=== PATIENT | female | born 1965 | race Caucasian/White ===

== ENCOUNTER 2020-05-09 13:32 | Outpatient (CLI) | payer MEDICARE, OTHER, MEDICAID, SELFPAY ==
--- NOTE | 2020-05-09 13:30 | MM_ITS ---
WS: [id number] SCREENING DIGITAL MAMMOGRAM WITH CAD HISTORY: screening COMPARISON: None available. Bilateral CC and MLO views submitted. Computer aided detection analyzed. Breast composition: There are scattered areas of fibroglandular density. No suspicious masses, microc alcifications or architectural distortion. MM/[place] [id number] IMPRESSION: BI-RADS: 1-Negative FOLLOW UP: 1 Year Follow-up
== END 2020-05-09 13:33 | disposition home or self-care (01) ==
PROVIDERS: PCP Family Medicine; Visit Provider Family Medicine
DX: Z12.31 Encounter for screening mammogram for malignant neoplasm of breast (principal)
CPT/HCPCS: 77067

== ENCOUNTER 2020-05-28 13:56 | Outpatient (CLI) | payer MEDICARE, OTHER, MEDICAID, SELFPAY ==
--- NOTE | 2020-05-28 14:40 | MR_ITS ---
WS: [id number] MRI LUMBAR SPINE NONCONTRAST HISTORY: SPINAL stenosis, lumbar REGION W/O NEUROGENIC CLAUDICATION COMPARISON: 07/17/2018 TECHNIQUE: Sagittal and axial multisequence imaging is submitted. Normal lumbar alignment with no compression fractures or marrow edema. Disc spaces and vertebral body heights are well-preserved. Conus terminates normally at L1. L1-L2: Normal. L2-L3: Normal. L3-L4: Tiny central disc protrusion similar to the prior study. Mild bilateral facet joint arthritis with no stenosis. L4-L5: Mild broad-based disc bulging. No focal stenosis. Disc is slightly asymmetric to the RIGHT. Mi ld bilateral facet joint arthritis. L5-S1: No stenosis. Mild annular bulging. Paravertebral soft tissues are normal. MR/MR lumbar spine wo con* [id number] IMPRESSION: 1. No significant central or foraminal stenosis. 2. Broad-based disc bulging at L4-5 without stenosis.
--- NOTE | 2020-05-28 14:42 | MR_ITS ---
WS: [id number] MRI THORACIC SPINE noncontrast HISTORY: SPINAL stenosis, lumbar REGION W/O NEUROGENIC CLAUDICATION COMPARISON: None available. TECHNIQUE: Multiplanar sequences are performed in sagittal and axial planes. Very slight RIGHT curvature of the thoracic spine with mild increase in thoracic kyphosis. Increased T1 and T2 signal in the T3 vertebral body is probably a hemangioma. There is additional inc reased signal on the T2 sequence within T6 and T7. T1 signal is not significantly increased but there is increased T2 signal in the T6 posterior LEFT body extending towards the pedicle. Signal abnormal ity measures 1.6 x 2.0 cm. There may be slight expansion of the bony cortex. No prior studies for com parison. T1-2: Normal. T2-3: Normal. T3-4: Normal. T4-5: Normal. T5-6: Normal. T6-7: Normal. T7-8: Moderate-sized central and LEFT paracentral disc protrusion. Slight contact on the ventral the mary sac and flattening. T8-9: RIGHT nerve root sleeve diverticulum. T9-10: Nerve root sleeve diverticulum on the RIGHT. T10-11: Negative. T11-12: Normal. MR/MR thoracic spin wo con* [id number] IMPRESSION: 1. Moderate-sized central and LEFT paracentral disc protrusion at T7-8 with mi ld cord contact. 2. Signal abnormalities within the T3, T6 and T7. Favor benign hemangiomas. No t a typical hemangioma at T6. Suggest bone scan imaging to evaluate for abnorma l uptake in T6.
--- NOTE | 2020-05-28 14:42 | XR_ITS ---
WS: [id number] LATERAL LUMBAR SPINE: 3 view. Lateral radiographs are performed in upright neutral, flexion and extension to the patient's toleranc e. HISTORY: SPINAL stenosis, lumbar REGION W/O NEUROGENIC CLAUDICATION COMPARISON: 12/08/2017 Less than 2 mm anterolisthesis of L4 is similar to the prior study. With flexion and extension no ins tability. Disc spaces and vertebral body heights are normal. Facet joint arthritis and sclerosis at L 4-5 and L5-S1. A few calcifications in aorta. XR/XR lumbar spine f/e only [id number] IMPRESSION: 1. Minimal anterolisthesis of L4 with no instability. 2. Facet joint arthritis at L4-5 and L5-S1 is moderate.
== END 2020-05-28 13:57 | disposition home or self-care (01) ==
LOC: RADWPI 14:02
PROVIDERS: Family Provider Family Medicine; PCP Family Medicine; Visit Provider Anesthesiology Pain Medicine
DX: M48.061 Spinal stenosis, lumbar region without neurogenic claudication (principal); M51.24 Other intervertebral disc displacement, thoracic region; M46.86 Other specified inflammatory spondylopathies, lumbar region; M46.87 Other specified inflammatory spondylopathies, lumbosacral region; M51.26 Other intervertebral disc displacement, lumbar region
CPT/HCPCS: 72120; 72146; 72148

== ENCOUNTER → 2020-08-11 12:20 | Outpatient (BNVA) | payer MEDICARE, OTHER, MEDICAID, SELFPAY | PROVIDERS: Family Provider Family Medicine; PCP Family Medicine; Visit Provider Family Medicine | DX: R73.9 Hyperglycemia, unspecified (principal); E03.9 Hypothyroidism, unspecified; I10 Essential (primary) hypertension | CPT/HCPCS: 80053; 83036; 84443; 85025 ==

== ENCOUNTER → 2020-10-09 12:18 | Outpatient (BNVA) | payer MEDICARE, OTHER, MEDICAID, SELFPAY | PROVIDERS: Family Provider Family Medicine; PCP Family Medicine; Visit Provider Family Medicine | DX: E11.65 Type 2 diabetes mellitus with hyperglycemia (principal) | CPT/HCPCS: 36416; 82962 ==

== ENCOUNTER → 2020-12-09 10:46 | Outpatient (BNVA) | payer MEDICARE, OTHER, MEDICAID, SELFPAY | PROVIDERS: Family Provider Family Medicine; PCP Family Medicine; Visit Provider Family Medicine | DX: Z01.818 Encounter for other preprocedural examination; E11.65 Type 2 diabetes mellitus with hyperglycemia; M48.061 Spinal stenosis, lumbar region without neurogenic claudication; M54.16 Radiculopathy, lumbar region; J44.9 Chronic obstructive pulmonary disease, unspecified; Z79.899 Other long term (current) drug therapy | CPT/HCPCS: 80048; 83036 ==

== ENCOUNTER 2021-02-13 15:10 | Outpatient (CLI) | payer MEDICARE, OTHER, MEDICAID, SELFPAY ==
--- NOTE | 2021-02-13 15:17 | MR_ITS ---
WS: [id number] MRI THORACIC SPINE WITHOUT CONTRAST TECHNIQUE: Sagittal T1, T2 and STIR imaging. Axial T2 imaging. Noncontrast imaging obtained. CLINICAL INFORMATION: OTHER INTERVERTEBRAL DISC DISPLACEMENT, THORACIC REGION COMPARISON: May 28, 2020 FINDINGS: Mild thoracic curve. Mild thoracic kyphosis. No acute compression fractures. No high-grade central canal stenosis. Cord signal is normal. Small central protrusion at T7-8 with sl ight contact of the thoracic cord. Mild central canal stenosis. Disc protrusion slightly eccentric to the left. Incidental hemangiomas T3, T6, T7. Moderate facet arthropathy in the lower thoracic spine. No signifi cant foraminal narrowing. Mild central canal stenosis in the mid cervical spine on the clinical assistant professor imaging at C4-C6. MR/MR thoracic spin wo con* [id number] IMPRESSION: 1. Mild thoracic curve. Mild thoracic kyphosis. No acute compression fractures . 2. Cord signal is normal. No high-grade central canal narrowing. 3. Small left pericentral protrusion T7-T8 with slight contact of the cervical cord and mild central canal stenosis. This is unchanged from previous. 4. Moderate facet arthropathy in the lower thoracic spine. 5. Incidental benign hemangiomas at T3, T6, T7 are stable.
== END 2021-02-13 15:11 | disposition home or self-care (01) ==
LOC: RADWPI 15:12
PROVIDERS: PCP Family Medicine; Visit Provider Specialist
DX: M51.24 Other intervertebral disc displacement, thoracic region (principal); D18.09 Hemangioma of other sites; M47.814 Spondylosis without myelopathy or radiculopathy, thoracic region
CPT/HCPCS: 72146

== ENCOUNTER → 2021-04-28 12:17 | Outpatient (BNVA) | payer MEDICARE, OTHER, MEDICAID, SELFPAY | PROVIDERS: PCP Family Medicine; Visit Provider Family Medicine | DX: E11.65 Type 2 diabetes mellitus with hyperglycemia (principal); M48.061 Spinal stenosis, lumbar region without neurogenic claudication; M54.16 Radiculopathy, lumbar region | CPT/HCPCS: 80053; 83036; 85025 ==

== ENCOUNTER → 2021-10-13 12:18 | Outpatient (BNVA) | payer MEDICARE, OTHER, MEDICAID, SELFPAY | PROVIDERS: PCP Family Medicine; Visit Provider Family Medicine | DX: E11.65 Type 2 diabetes mellitus with hyperglycemia (principal); E78.00 Pure hypercholesterolemia, unspecified; J41.0 Simple chronic bronchitis; R94.2 Abnormal results of pulmonary function studies | CPT/HCPCS: 80053; 80061; 83036; 85025 ==

== ENCOUNTER → 2022-02-25 12:44 | Outpatient (BNVA) | payer MEDICARE, OTHER, MEDICAID, SELFPAY | PROVIDERS: PCP Family Medicine; Visit Provider Family Medicine | DX: E11.65 Type 2 diabetes mellitus with hyperglycemia (principal); E78.00 Pure hypercholesterolemia, unspecified | CPT/HCPCS: 80053; 80061; 83036; 85025 ==

== ENCOUNTER → 2022-03-30 13:14 | Outpatient (BNVA) | payer MEDICARE, MEDICAID, SELFPAY | PROVIDERS: PCP Family Medicine; Visit Provider Internal Medicine Critical Care Medicine | DX: G47.33 Obstructive sleep apnea (adult) (pediatric) (principal); F17.210 Nicotine dependence, cigarettes, uncomplicated; J30.9 Allergic rhinitis, unspecified; J42 Unspecified chronic bronchitis; K21.9 Gastro-esophageal reflux disease without esophagitis; E11.65 Type 2 diabetes mellitus with hyperglycemia | CPT/HCPCS: 99214 ==

== ENCOUNTER → 2022-11-15 13:56 | Outpatient (BNVA) | payer MEDICARE, MEDICAID, SELFPAY | PROVIDERS: PCP Family Medicine; Visit Provider Family Medicine | DX: E78.00 Pure hypercholesterolemia, unspecified (principal); E11.65 Type 2 diabetes mellitus with hyperglycemia | CPT/HCPCS: 80053; 80061; 83036; 85025 ==

== ENCOUNTER → 2023-05-23 14:35 | Outpatient (BNVA) | payer MEDICARE, MEDICAID, SELFPAY | PROVIDERS: PCP Family Medicine; Visit Provider Family Medicine | DX: Z00.00 Encounter for general adult medical examination without abnormal findings (principal); E11.65 Type 2 diabetes mellitus with hyperglycemia; Z72.0 Tobacco use; M89.49 Other hypertrophic osteoarthropathy, multiple sites; G47.33 Obstructive sleep apnea (adult) (pediatric); I10 Essential (primary) hypertension | CPT/HCPCS: 80053; 83036; 85025 ==

== ENCOUNTER → 2023-05-25 11:34 | Outpatient (BNVA) | payer MEDICARE, MEDICAID, SELFPAY | PROVIDERS: PCP Family Medicine; Visit Provider Family Medicine | DX: Z00.00 Encounter for general adult medical examination without abnormal findings (principal); E11.65 Type 2 diabetes mellitus with hyperglycemia; Z72.0 Tobacco use; M89.49 Other hypertrophic osteoarthropathy, multiple sites; G47.33 Obstructive sleep apnea (adult) (pediatric); I10 Essential (primary) hypertension; E78.00 Pure hypercholesterolemia, unspecified | CPT/HCPCS: 80061 ==

== ENCOUNTER → 2023-10-27 11:47 | Outpatient (BNVA) | payer MEDICARE, MEDICAID, SELFPAY | PROVIDERS: PCP Family Medicine; Visit Provider Family Medicine | DX: E03.9 Hypothyroidism, unspecified (principal); E78.00 Pure hypercholesterolemia, unspecified; I10 Essential (primary) hypertension; E11.9 Type 2 diabetes mellitus without complications; E83.42 Hypomagnesemia | CPT/HCPCS: 80053; 83036; 85025 ==

== ENCOUNTER → 2023-12-26 11:46 | Outpatient (BNVA) | payer MEDICARE, MEDICAID, SELFPAY | PROVIDERS: PCP Family Medicine; Visit Provider Family Medicine | DX: E55.9 Vitamin D deficiency, unspecified (principal); G47.33 Obstructive sleep apnea (adult) (pediatric); I10 Essential (primary) hypertension; E11.65 Type 2 diabetes mellitus with hyperglycemia; E03.9 Hypothyroidism, unspecified; E53.8 Deficiency of other specified B group vitamins | CPT/HCPCS: 80053; 82607; 82652; 83036; 84443; 85025 ==

== ENCOUNTER → 2024-03-01 12:40 | Outpatient (BNVA) | payer MEDICARE, MEDICAID, SELFPAY | PROVIDERS: PCP Family Medicine; Visit Provider Family Medicine | DX: R30.0 Dysuria (principal); E11.65 Type 2 diabetes mellitus with hyperglycemia; E78.00 Pure hypercholesterolemia, unspecified | CPT/HCPCS: 80053; 80061; 81000; 83036; 85025 ==

== ENCOUNTER → 2025-03-27 14:40 | Outpatient (BNVA) | payer MEDICARE, MEDICAID, SELFPAY | PROVIDERS: PCP Family Medicine; Visit Provider Family Medicine | DX: Z00.00 Encounter for general adult medical examination without abnormal findings (principal); E78.00 Pure hypercholesterolemia, unspecified; I10 Essential (primary) hypertension; E11.65 Type 2 diabetes mellitus with hyperglycemia | CPT/HCPCS: 80053; 80061; 83036; 85025 ==

== ENCOUNTER 2025-05-28 13:00 | Outpatient (CLI) | payer MEDICARE, MEDICAID, SELFPAY ==
--- NOTE | 2025-05-28 13:08 | MR_ITS ---
WS: [id number] MRI LUMBAR SPINE NONCONTRAST HISTORY: INTERVERTEBRAL DISC DISORDERS W/RADICULOPATHY COMPARISON: 05/28/2020 TECHNIQUE: Sagittal and axial multisequence imaging is submitted. Mild straightening of the normal lumbar lordosis. Vertebral bodies and disc spaces are well-maintained. L1 hemangioma. Disc spaces and vertebral body heights are well-preserved. Conus terminates normally at L1-2 disc level. L1-L2: Normal. L2-L3: Normal. L3-L4: Mild annular disc bulging with ligamentum flavum and facet arthritis. Shallow LEFT foraminal disc protrusion. Mild bilateral foraminal stenosis. L4-L5: Mild annular disc bulging with mild ligamentum flavum and facet arthritis. Disc bulging with minimal contact on the exiting RIGHT L4 nerve root. L5-S1: No significant stenosis. Very small bilateral renal cysts. MR/MR lumbar spine wo con* [id number] IMPRESSION: 1. Mild disc bulging contacting the RIGHT exiting L4 nerve root. 2. Shallow LEFT foraminal disc protrusion at L3-4 with mild bilateral foramina l stenosis. 3. Mild facet arthritis at L3-4 and L4-5.
== END 2025-05-28 13:01 | disposition home or self-care (01) ==
LOC: RAD 13:01
PROVIDERS: PCP Family Medicine; Visit Provider Anesthesiology
DX: M51.16 Intervertebral disc disorders with radiculopathy, lumbar region (principal); M51.26 Other intervertebral disc displacement, lumbar region; M48.061 Spinal stenosis, lumbar region without neurogenic claudication; M47.896 Other spondylosis, lumbar region; D18.09 Hemangioma of other sites; M24.28 Disorder of ligament, vertebrae; N28.1 Cyst of kidney, acquired
CPT/HCPCS: 72148

== ENCOUNTER → 2025-09-26 12:06 | Outpatient (BNVA) | payer MEDICAID, SELFPAY | PROVIDERS: PCP Family Medicine; Visit Provider Family Medicine | DX: E11.65 Type 2 diabetes mellitus with hyperglycemia (principal) | CPT/HCPCS: 80053; 83036; 85025 ==